=== PATIENT | male | born 1980 | race African-American/Black ===

== ENCOUNTER 2017-04-04 07:57 | Emergency (ER) | payer MEDICAID, OTHER ==
[~2017-04-04] VITALS: Ht 170.2 cm; Wt 68.0 kg
[2017-04-04 07:59] VITALS: BP 129/94
[2017-04-04] MEDS ORDERED: HYDROCODONE/ACETAMINOPHEN 5-325 MG TABLET PO ONE (08:30)
== END 2017-04-04 08:46 | disposition home or self-care (01) ==
LOC: EMS 07:59
DX: L03.115 Cellulitis of right lower limb (principal); B35.3 Tinea pedis; F17.210 Nicotine dependence, cigarettes, uncomplicated
CPT/HCPCS: 99283

== ENCOUNTER 2018-12-23 22:17 | Inpatient (IN) | payer MEDICAID, OTHER ==
[~2018-12-23] VITALS: Ht 170.2 cm; Wt 72.6 kg
[2018-12-23 22:59] LABS: BASOPHILS % (AUTO) 0.6 % (0.0-2.0); EOSINOPHILS % (AUTO) 0.8 % (1.0-6.0); HEMATOCRIT 46.5 % (41-53); HEMOGLOBIN 15.4 g/dL (13.5-17.5); LYMPHOCYTES # (AUTO) 1.8 K/uL (1.0-4.8); MEAN CORPUSCULAR HEMOGLOBIN 29.9 pg (26.0-34.0); MEAN CORPUSCULAR HGB CONC 33.1 G/dL (31.0-37.0); MEAN CORPUSCULAR VOLUME 90 fL (80-100); MONOCYTES # (AUTO) 0.8 K/uL (0.1-1.0); MONOCYTES % (AUTO) 12.8 % (2.0-9.0); NEUTROPHILS # (AUTO) 3.5 K/uL (1.8-7.7); NEUTROPHILS % (AUTO) 56.8 % (40.0-70.0); PLATELET COUNT (AUTO) 284 K/uL (150-450); RED BLOOD CELL COUNT(AUTO) 5.15 MIL/uL (4.50-5.90)
[2018-12-23] MEDS ORDERED: LORazepam 2 MG/ML VIAL IM ONE (23:00)
[2018-12-23] MEDS ORDERED: DiphenhydrAMINE HCL 50 MG/ML VIAL IM ONE (23:00)
[2018-12-23] MEDS ORDERED: HALOPERIDOL LACTATE 5 MG/ML VIAL IM ONE (23:00)
[2018-12-23 23:03] LABS: ANION GAP 12 mmol/L (8-16); CALCIUM, TOTAL 9.6 mg/dL (8.8-10.5); CARBON DIOXIDE 23 mmol/L (22-29); CHLORIDE 103 mmol/L (98-107); GLOMERULAR FILTR. RATE CALC > 60 mL/min (>60); GLUCOSE,RANDOM 90 mg/dL (70-110); POTASSIUM 3.6 mmol/L (3.5-5.1); SODIUM SERUM 138 mmol/L (136-145); UREA NITROGEN, BLOOD 12 mg/dL (7-18)
[2018-12-23 23:09] LABS: ALANINE AMINOTRANSFERASE 23 U/L (12-78); ALKALINE PHOSPHATASE 69 U/L (46-116); ASPARTATE AMINOTRANSFERASE 21 U/L (15-37); BILIRUBIN,TOTAL 0.5 mg/dL (0.1-1.0); TOTAL PROTEIN, SERUM 8.2 g/dL (6.4-8.2)
[2018-12-24] VITALS (7 sets, daily range): BP systolic 120–140; BP diastolic 72–81
[2018-12-24] MEDS ORDERED: ZOLPIDEM TARTRATE 10 MG TABLET PO PRN (05:00)
[2018-12-24] MEDS ORDERED: LORazepam 2 MG TABLET PO PRN ×2 (05:00→12:15)
[2018-12-24] MEDS ORDERED: HALOPERIDOL 5 MG TABLET PO PRN (05:00)
[2018-12-24 07:34] LABS: AMPHET/METH SCREEN,URINE NEGATIVE (NEGATIVE); BARBITURATE SCREEN, URINE NEGATIVE (NEGATIVE); BENZODIAZEPINES SCREEN,URINE NEGATIVE (NEGATIVE); CANNABINOID SCREEN,URINE POSITIVE (NEGATIVE); COCAINE SCREEN,URINE NEGATIVE (NEGATIVE); METHADONE SCREEN, URINE NEGATIVE (NEGATIVE); OPIATE SCREEN,URINE NEGATIVE (NEGATIVE)
[2018-12-24 07:35] LABS: PHENCYCLIDINE SCREEN,URINE NEGATIVE (NEGATIVE)
[2018-12-24] MEDS ORDERED: OLANZapine 5 MG RAPDIS TABLET PO PRN (12:15)
[2018-12-24] MEDS ORDERED: PROMETHAZINE HCL 25 MG TABLET PO PRN (12:15)
[2018-12-24] MEDS ORDERED: TUBERCULIN, PURIFIED PROTEIN DERIVATIVE 5 TU/0.1 ML SYG ID ONE (12:15)
[2018-12-24] MEDS ORDERED: MAGNESIUM HYDROXIDE SUSPENSION 30 ML UDCUP PO PRN (12:15)
[2018-12-24] MEDS ORDERED: ACETAMINOPHEN 325 MG TABLET PO PRN (12:15)
[2018-12-24] MEDS ORDERED: CYANOCOBALAMIN 1,000 MCG/ML VIAL IM ONE (12:15)
[2018-12-24] MEDS ORDERED: LOPERAMIDE HCL 2 MG CAPSULE PO PRN ×2 (12:15)
[2018-12-24] MEDS ORDERED: MAG HYDROX/AL HYDROX/SIMETH ES 30 ML SUSPENSION UDCUP PO PRN (12:15)
[2018-12-24] MEDS ORDERED: HydrOXYzine PAMOATE 50 MG CAPSULE PO PRN (12:15)
[2018-12-24] MEDS ORDERED: GuaiFENesin/D-METHORPHAN [SUGAR-FREE] 200-20MG/10 ML SYRUP UDCUP PO PRN (12:15)
[2018-12-24] MEDS: THIAMINE HCL 100 MG TABLET PO SCH (17:05)
[2018-12-25 02:26] VITALS: BP 119/68
[2018-12-25 06:25] VITALS: BP 128/72
[2018-12-25 06:30] VITALS: BP 128/72
[2018-12-25] MEDS ORDERED: LORazepam 2 MG TABLET PO PRN (07:00)
[2018-12-25 08:02] VITALS: BP 140/75
[2018-12-25] MEDS: NALTREXONE HCL 50 MG TABLET PO SCH (08:12)
[2018-12-25] MEDS: MULTIVITAMINS WITH MINERALS, THERAPEUTIC TABLET PO SCH (08:12)
[2018-12-25] MEDS: THIAMINE HCL 100 MG TABLET PO SCH ×2 (08:12→17:00)
[2018-12-25] MEDS: FOLIC ACID 1 MG TABLET PO SCH (08:12)
[2018-12-25] MEDS: LORazepam 2 MG TABLET PO SCH ×4 (08:12→21:14)
[2018-12-25] MEDS ORDERED: PARoxetine HCL 20 MG TABLET PO SCH (09:00)
[2018-12-25 12:30] VITALS: BP 140/75
[2018-12-25] MEDS ORDERED: NALT50TA PO (15:33)
[2018-12-25] MEDS ORDERED: PARO-37 PO (15:33)
[2018-12-25 16:00] VITALS: BP 130/77
[2018-12-26 01:00] VITALS: BP 135/88
[2018-12-26 01:23] VITALS: BP 135/88
[2018-12-26 08:00] VITALS: BP 140/85
[2018-12-26] MEDS: FOLIC ACID 1 MG TABLET PO SCH (08:05)
[2018-12-26] MEDS: LORazepam 2 MG TABLET PO SCH (08:05)
[2018-12-26] MEDS: MULTIVITAMINS WITH MINERALS, THERAPEUTIC TABLET PO SCH (08:05)
[2018-12-26] MEDS: NALTREXONE HCL 50 MG TABLET PO SCH (08:05)
[2018-12-26] MEDS: THIAMINE HCL 100 MG TABLET PO SCH (08:05)
[2018-12-26 08:10] VITALS: BP 140/85
[2018-12-26] MEDS ORDERED: PARoxetine HCL 10 MG TABLET PO SCH (09:00)
[2018-12-26] MEDS ORDERED: PARO10TA89 PO (09:11)
[2018-12-26] MEDS ORDERED: NALT50TA6 PO (09:11)
[2018-12-27] MEDS ORDERED: LORazepam 1 MG TABLET PO PRN (07:00)
[2018-12-27] MEDS ORDERED: LORazepam 1 MG TABLET PO SCH (09:00)
[2018-12-28] MEDS ORDERED: LORazepam 1 MG TABLET PO PRN (07:00)
== END 2018-12-26 10:25 | disposition home or self-care (01) | DRG 753 ==
LOC: EMS 22:17 → B3A 12-24 04:30
PROVIDERS: ADMIT Psychiatry & Neurology Psychiatry; ATTEND Psychiatry & Neurology Psychiatry
DX: F31.5 Bipolar disorder, current episode depressed, severe, with psychotic features (principal); R45.850 Homicidal ideations; F10.20 Alcohol dependence, uncomplicated; Y90.6 Blood alcohol level of 120-199 mg/100 ml; F12.90 Cannabis use, unspecified, uncomplicated; Z78.1 Physical restraint status; Z87.891 Personal history of nicotine dependence; Z91.19 Patient's noncompliance with other medical treatment and regimen; Z59.0 Homelessness
CPT/HCPCS: 96372; G0480; J1200; J1630; J2060; J3420